=== PATIENT | female | born 1960 | race Two or more races ===

== ENCOUNTER 2020-11-12 11:34 | Emergency (ER) | payer OTHER ==
[~2020-11-12] VITALS: Ht 157.5 cm; Wt 99.8 kg
[2020-11-12] MEDS ORDERED: NORVASC2.5 MG (12:12)
[2020-11-12] MEDS ORDERED: TOPROL XL50 M1 (12:12)
[2020-11-12] MEDS ORDERED: AROMASIN25 MG (12:13)
[2020-11-12] MEDS ORDERED: VOLTAREN100 GM (12:14)
[2020-11-12] MEDS ORDERED: ZYPREXA10 MG (12:14)
[2020-11-12] MEDS ORDERED: LOSARTAN-HCTZ1 EAC2 (12:14)
[2020-11-12] MEDS ORDERED: KETO10TA2 PO (15:32)
[2020-11-12] MEDS ORDERED: AMOX1TAB5 PO (15:32)
== END 2020-11-12 15:49 | disposition home or self-care (01) ==
LOC: ER 11:34
DX: B34.9 Viral infection, unspecified (principal); Z03.818 Encounter for observation for suspected exposure to other biological agents ruled out

== ENCOUNTER 2020-12-25 11:00 | Emergency (ER) | payer OTHER ==
[~2020-12-25] VITALS: Ht 157.5 cm; Wt 109.3 kg
[~2020-12-25 11:00] MED LIST: AMOX1TAB5 PO; AROMASIN25 MG; KETO10TA2 PO; LOSARTAN-HCTZ1 EAC2; NORVASC2.5 MG; TOPROL XL50 M1; VOLTAREN100 GM; ZYPREXA10 MG
[2020-12-25] MEDS ORDERED: LIPITOR20 MG (11:19)
[2020-12-25] MEDS ORDERED: ZOLOFT100 MG (11:21)
[2020-12-25] MEDS ORDERED: ULTRAM50 MG PO (13:37)
[2020-12-25] MEDS ORDERED: SKELAXIN800 MG PO (13:37)
[2020-12-25] MEDS ORDERED: KETO10TA2 PO (13:37)
== END 2020-12-25 14:07 | disposition home or self-care (01) ==
LOC: ER 11:00
DX: M62.830 Muscle spasm of back (principal); M54.31 Sciatica, right side

== ENCOUNTER 2021-01-08 09:57 | Emergency (ER) | payer OTHER ==
[~2021-01-08] VITALS: Ht 157.5 cm; Wt 109.3 kg
[~2021-01-08 09:57] MED LIST changes: +LIPITOR20 MG; +SKELAXIN800 MG PO; +ULTRAM50 MG PO; +ZOLOFT100 MG
[2021-01-08] MEDS ORDERED: KETO10TA2 PO (16:59)
[2021-01-08] MEDS ORDERED: ORPHENADRINE C100 MG PO (16:59)
== END 2021-01-08 18:25 ==
LOC: ER 09:57
DX: N39.0 Urinary tract infection, site not specified (principal); B96.29 Other Escherichia coli [E. coli] as the cause of diseases classified elsewhere; B96.4 Proteus (mirabilis) (morganii) as the cause of diseases classified elsewhere; B34.9 Viral infection, unspecified; R50.9 Fever, unspecified; Z03.818 Encounter for observation for suspected exposure to other biological agents ruled out; R53.81 Other malaise; R19.7 Diarrhea, unspecified

== ENCOUNTER 2021-03-02 10:12 | Emergency (ER) | payer OTHER ==
[~2021-03-02] VITALS: Ht 162.6 cm; Wt 108.9 kg
[~2021-03-02 10:12] MED LIST changes: +ORPHENADRINE C100 MG PO
== END 2021-03-02 16:01 | disposition home or self-care (01) ==
LOC: ER 10:12
DX: R53.81 Other malaise (principal); Z03.818 Encounter for observation for suspected exposure to other biological agents ruled out

== ENCOUNTER 2021-03-16 10:10 | Emergency (ER) | payer OTHER ==
[~2021-03-16] VITALS: Ht 157.5 cm; Wt 108.9 kg
== END 2021-03-16 15:30 | disposition home or self-care (01) ==
LOC: ER 10:10
DX: J45.998 Other asthma (principal)

== ENCOUNTER 2021-05-12 09:39 | Emergency (ER) | payer OTHER ==
[~2021-05-12] VITALS: Ht 157.5 cm; Wt 102.1 kg
== END 2021-05-12 15:29 | disposition home or self-care (01) ==
LOC: ER 09:39
DX: R00.2 Palpitations (principal); R53.81 Other malaise; Z03.818 Encounter for observation for suspected exposure to other biological agents ruled out

== ENCOUNTER 2021-05-22 08:25 | Emergency (ER) | payer OTHER ==
[~2021-05-22] VITALS: Ht 157.5 cm; Wt 97.1 kg
[2021-05-22] MEDS ORDERED: TESSALON PERLE100 M1 PO (13:10)
[2021-05-22] MEDS ORDERED: MUCINEX DM ER1 EAC1 PO (13:10)
[2021-05-22] MEDS ORDERED: ULTRAM50 MG PO (13:10)
[2021-05-22] MEDS ORDERED: CELEBREX100 MG PO (13:10)
== END 2021-05-22 13:22 | disposition home or self-care (01) ==
LOC: ER 08:25
DX: J06.9 Acute upper respiratory infection, unspecified (principal); R68.83 Chills (without fever); R05 Cough; R51.9 Headache, unspecified; R06.02 Shortness of breath; R11.0 Nausea; Z20.822 Contact with and (suspected) exposure to COVID-19

== ENCOUNTER 2021-07-03 08:53 | Emergency (ER) | payer OTHER ==
[~2021-07-03] VITALS: Ht 157.5 cm; Wt 99.8 kg
[~2021-07-03 08:53] MED LIST changes: +CELEBREX100 MG PO; +MUCINEX DM ER1 EAC1 PO; +TESSALON PERLE100 M1 PO
== END 2021-07-03 12:49 | disposition home or self-care (01) ==
LOC: ER 08:53
DX: M54.5 Low back pain (principal)

== ENCOUNTER 2021-10-11 09:57 | Emergency (ER) | payer OTHER ==
[~2021-10-11] VITALS: Ht 157.5 cm; Wt 102.1 kg
== END 2021-10-11 14:04 | disposition home or self-care (01) ==
LOC: ER 09:57
DX: B34.9 Viral infection, unspecified (principal); M54.89 Other dorsalgia; Z11.52 Encounter for screening for COVID-19

== ENCOUNTER 2022-10-24 07:25 | Emergency (ER) | payer OTHER ==
[~2022-10-24] VITALS: Ht 157.5 cm; Wt 104.3 kg
[2022-10-24] MEDS ORDERED: AMOX1TAB5 PO (10:51)
== END 2022-10-24 11:18 | disposition home or self-care (01) ==
LOC: ER 07:25
DX: H92.09 Otalgia, unspecified ear (principal); Z20.822 Contact with and (suspected) exposure to COVID-19

== ENCOUNTER 2022-12-03 15:33 | Emergency (ER) | payer OTHER ==
[~2022-12-03] VITALS: Ht 157.5 cm; Wt 106.1 kg
[2022-12-03] MEDS ORDERED: TRAMADOL HCL50 MG PO (19:08)
[2022-12-03] MEDS ORDERED: BACTRIM DS TAB1 EACH PO (19:11)
== END 2022-12-03 19:32 | disposition home or self-care (01) ==
LOC: ER 15:33
DX: M19.91 Primary osteoarthritis, unspecified site (principal); M54.59 Other low back pain; R51.9 Headache, unspecified

== ENCOUNTER → 2023-02-17 | Emergency (ER) | payer OTHER ==
[~2023-02-17] VITALS: Ht 157.5 cm; Wt 90.7 kg
[~2023-02-17] MED LIST changes: +BACTRIM DS TAB1 EACH PO; +DICLOFENAC35 MG PO; +LEVOFLOXACIN750 MG PO; +MEDROLPACK PO; +MUCINEX D ER 11 EACH PO; +TRAMADOL HCL50 MG PO; +ZYPREXA10 MG PO
== END | disposition home or self-care (01) ==
LOC: ER 10:14
DX: B34.9 Viral infection, unspecified (principal); Z20.822 Contact with and (suspected) exposure to COVID-19

== ENCOUNTER 2023-03-28 09:52 | Outpatient (CLI) | payer OTHER | END 2023-03-28 10:15 | disposition home or self-care (01) | LOC: RAD 09:52 | PROVIDERS: ATTEND Internal Medicine | DX: C50.411 Malignant neoplasm of upper-outer quadrant of right female breast (principal); Z85.3 Personal history of malignant neoplasm of breast; R51.9 Headache, unspecified; J32.1 Chronic frontal sinusitis; M41.9 Scoliosis, unspecified ==

== ENCOUNTER → 2023-04-01 | Emergency (ER) | payer OTHER ==
[~2023-04-01] VITALS: Ht 157.5 cm; Wt 103.9 kg
[~2023-04-01] MED LIST changes: +DRAMAMINE LESS25 MG PO
== END | disposition home or self-care (01) ==
LOC: ER 13:39
DX: R42 Dizziness and giddiness (principal)

== ENCOUNTER 2023-06-08 10:43 | Emergency (ER) | payer OTHER ==
[~2023-06-08] VITALS: Ht 157.5 cm; Wt 103.9 kg
[2023-06-08] MEDS ORDERED: BACTRIM DS TAB1 EACH PO (11:09)
[2023-06-08] MEDS ORDERED: MUPIROCIN15 GM TOP (11:11)
== END 2023-06-08 11:29 | disposition home or self-care (01) ==
LOC: ER 10:43
DX: L02.216 Cutaneous abscess of umbilicus (principal); E11.9 Type 2 diabetes mellitus without complications; I11.9 Hypertensive heart disease without heart failure

== ENCOUNTER 2023-06-23 12:30 | Outpatient (CLI) | payer OTHER ==
[~2023-06-23 12:30] MED LIST changes: +MUPIROCIN15 GM TOP
== END 2023-06-23 12:31 | disposition home or self-care (01) ==
LOC: LAB 12:30
PROVIDERS: ATTEND Radiology Diagnostic Radiology
DX: I11.9 Hypertensive heart disease without heart failure (principal); R10.9 Unspecified abdominal pain

== ENCOUNTER 2023-07-03 13:40 | Emergency (ER) | payer OTHER ==
[~2023-07-03] VITALS: Ht 167.6 cm; Wt 81.6 kg
== END 2023-07-03 18:24 | disposition home or self-care (01) ==
LOC: ER 13:40
DX: M79.7 Fibromyalgia (principal); I10 Essential (primary) hypertension; Z85.3 Personal history of malignant neoplasm of breast; E78.00 Pure hypercholesterolemia, unspecified; M19.90 Unspecified osteoarthritis, unspecified site
CPT/HCPCS: 96372; 99284; J1885; J2360

== ENCOUNTER 2023-08-19 11:45 | Outpatient (CLI) | payer OTHER | END 2023-08-19 11:56 | disposition home or self-care (01) | LOC: RAD 11:45 | PROVIDERS: ATTEND General Practice | DX: M25.152 Fistula, left hip (principal) ==

== ENCOUNTER 2023-10-20 14:52 | Emergency (ER) | payer OTHER ==
[~2023-10-20] VITALS: Ht 157.5 cm; Wt 101.6 kg
[2023-10-20] MEDS ORDERED: PLAVIX75 MG PO (15:16)
[2023-10-20] MEDS ORDERED: PEPCID AC10 MG (15:18)
[2023-10-20 16:14] LABS: HEMATOCRIT 38.6 % (36.0-45.00); HEMOGLOBIN 13.2 g/dL (12.0-15.00); MEAN CORPUSCULAR HEMOGLOBIN 32.6 pg (27.00-32.0); MEAN CORPUSCULAR HGB CONC 34.3 g/dl (32.0-36.0); PLATELET COUNT 262 K/uL (150-450); RED BLOOD COUNT 4.06 M/uL (4.00-6.00)
[2023-10-20 16:31] LABS: PH,URINE 5.5 (5.0-8.0); URINE APPEARANCE Clear; URINE BILIRRUBIN Negative (NEGATIVE); URINE BLOOD Negative; URINE COLOR Dark Yellow; URINE GLUCOSE Negative (NEGATIVE); URINE LEUKOCYTE Trace; URINE NITRATE Negative; URINE PROTEIN Negative (NEGATIVE); URINE UROBILINOGEN 0.2 E.U./dl
[2023-10-20 16:32] LABS: URINE BACTERIA 105.7 uL (0.0-1933); URINE EPITHELIAL CELLS 2.6 uL (0.0-38.8); URINE RBC 3.8 uL (0.0-20.8); URINE WBC 3.8 uL (0.0-23.2)
[2023-10-20 16:33] LABS: CREATININE SERUM 0.81 mg/dL (0.55-1.02); GFR 71.41; POTASSIUM 3.82 mEq/L (3.5-5.1)
[2023-10-20] MEDS ORDERED: TUSSIN DM LIQU118 ML PO (17:28)
== END 2023-10-20 17:43 | disposition home or self-care (01) ==
LOC: ER 14:53
PROVIDERS: Nurse Practitioner Family
DX: J06.9 Acute upper respiratory infection, unspecified (principal); Z85.3 Personal history of malignant neoplasm of breast; I10 Essential (primary) hypertension; M19.90 Unspecified osteoarthritis, unspecified site; K29.70 Gastritis, unspecified, without bleeding; Z90.11 Acquired absence of right breast and nipple; R30.0 Dysuria; Z20.822 Contact with and (suspected) exposure to COVID-19
CPT/HCPCS: 36415; 96372; 99284; J1100

== ENCOUNTER 2023-12-02 12:44 | Emergency (ER) | payer OTHER ==
[~2023-12-02] VITALS: Ht 157.5 cm; Wt 101.6 kg
[~2023-12-02 12:44] MED LIST changes: +PEPCID AC10 MG; +PLAVIX75 MG PO; +TUSSIN DM LIQU118 ML PO
[2023-12-02] MEDS ORDERED: GUAIFENESIN/DEXTROMETHORPHAN 100 MG/5 ML ML PO ONE (14:45)
[2023-12-02] MEDS ORDERED: CETIRIZINE HCL 5 MG/5 ML ML PO ONE (14:45)
[2023-12-02] MEDS ORDERED: KETOROLAC TROMETHAMINE 30 MG VIAL IM ONE (15:00)
[2023-12-02 15:18] LABS: URINE APPEARANCE Cloudy; URINE BILIRRUBIN Negative (NEGATIVE); URINE BLOOD Negative; URINE COLOR Yellow; URINE GLUCOSE Negative (NEGATIVE); URINE LEUKOCYTE Trace; URINE NITRATE Negative; URINE PROTEIN Negative (NEGATIVE)
[2023-12-02 15:23] LABS: URINE EPITHELIAL CELLS 10.8 uL (0.0-38.8); URINE RBC 3.4 uL (0.0-20.8); URINE WBC 17.1 uL (0.0-23.2)
[2023-12-02 15:26] LABS: HEMATOCRIT 38.1 % (36.0-45.00); HEMOGLOBIN 12.9 g/dL (12.0-15.00); MEAN CELL VOLUME 96.5 fL (80.00-100.00); MEAN CORPUSCULAR HEMOGLOBIN 32.7 pg (27.00-32.0); MEAN CORPUSCULAR HGB CONC 33.9 g/dl (32.0-36.0); PLATELET COUNT 279 K/uL (150-450); RED BLOOD COUNT 3.95 M/uL (4.00-6.00); RED CELL DISTRIBUTION WIDTH 13.7 % (11.5-14.5)
[2023-12-02] MEDS ORDERED: ZITHROMAX500 MG PO (16:53)
[2023-12-02] MEDS ORDERED: TUSSIN DM SYRU118 ML PO (16:57)
== END 2023-12-02 17:13 | disposition home or self-care (01) ==
LOC: ER 12:44
PROVIDERS: Nurse Practitioner Family
DX: U07.1 COVID-19 (principal); I10 Essential (primary) hypertension; Z85.3 Personal history of malignant neoplasm of breast
CPT/HCPCS: 36415; 96372; 99283; J1885

== ENCOUNTER 2024-01-23 12:43 | Emergency (ER) | payer OTHER ==
[~2024-01-23] VITALS: Ht 157.5 cm; Wt 101.6 kg
[~2024-01-23 12:43] MED LIST changes: +TUSSIN DM SYRU118 ML PO; +ZITHROMAX500 MG PO
[2024-01-23] MEDS ORDERED: AZITHROMYCIN 500 MG TABLET PO ONE (13:45)
[2024-01-23] MEDS ORDERED: TRIAMCINOLONE ACETONIDE 40 MG/ML VIAL IM ONE (13:45)
[2024-01-23] MEDS ORDERED: KETOROLAC TROMETHAMINE 60 MG VIAL IM ONE (13:45)
[2024-01-23] MEDS ORDERED: DICLOFENAC SODI75 MG PO (13:49)
[2024-01-23] MEDS ORDERED: ZITHROMAX500 MG PO (13:49)
== END 2024-01-23 14:11 | disposition home or self-care (01) ==
LOC: ER 12:43
DX: M54.31 Sciatica, right side (principal)
CPT/HCPCS: 96372; 99282; J1885; J3301

== ENCOUNTER 2024-04-13 13:24 | Outpatient (CLI) | payer OTHER ==
[~2024-04-13 13:24] MED LIST changes: +AROMASIN25 MG PO; +DICLOFENAC SODI75 MG PO
== END 2024-04-13 13:34 | disposition home or self-care (01) ==
LOC: MRI 13:24
PROVIDERS: ATTEND General Practice
DX: R51.9 Headache, unspecified (principal); R42 Dizziness and giddiness; I11.9 Hypertensive heart disease without heart failure; I67.9 Cerebrovascular disease, unspecified; Z85.3 Personal history of malignant neoplasm of breast
CPT/HCPCS: 70551

== ENCOUNTER 2024-06-04 16:06 | Emergency (ER) | payer OTHER ==
[~2024-06-04] VITALS: Ht 157.5 cm; Wt 99.3 kg
[2024-06-04] MEDS ORDERED: KETOROLAC TROMETHAMINE 60 MG VIAL IM ONE ×2 (17:15→17:18)
[2024-06-04 17:46] LABS: HEMATOCRIT 37.8 % (36.0-45.00); HEMOGLOBIN 13.1 g/dL (12.0-15.00); MEAN CELL VOLUME 94.3 fL (80.00-100.00); MEAN CORPUSCULAR HEMOGLOBIN 32.7 pg (27.00-32.0); MEAN CORPUSCULAR HGB CONC 34.7 g/dl (32.0-36.0); PLATELET COUNT 216 K/uL (150-450); RED BLOOD COUNT 4.01 M/uL (4.00-6.00); RED CELL DISTRIBUTION WIDTH 14.2 % (11.5-14.5)
[2024-06-04 18:11] LABS: CALCIUM 9.6 mg/dL (8.5-10.1); CREATININE SERUM 1.07 mg/dL (0.55-1.02); GFR 51.63; POTASSIUM 3.15 mEq/L (3.5-5.1)
== END 2024-06-04 18:47 | disposition home or self-care (01) ==
LOC: ER 16:07
PROVIDERS: General Practice
DX: R53.81 Other malaise (principal); M19.90 Unspecified osteoarthritis, unspecified site; R07.9 Chest pain, unspecified; I10 Essential (primary) hypertension
CPT/HCPCS: 36415; 96372; 99282; J1885

== ENCOUNTER 2024-06-27 11:49 | Emergency (ER) | payer OTHER ==
[~2024-06-27] VITALS: Ht 157.5 cm; Wt 98.9 kg
[2024-06-27] MEDS ORDERED: SULINDAC150 MG (12:03)
[2024-06-27 13:01] LABS: HEMATOCRIT 39.8 % (36.0-45.00); HEMOGLOBIN 13.8 g/dL (12.0-15.00); MEAN CELL VOLUME 96.8 fL (80.00-100.00); MEAN CORPUSCULAR HEMOGLOBIN 33.5 pg (27.00-32.0); MEAN CORPUSCULAR HGB CONC 34.6 g/dl (32.0-36.0); PLATELET COUNT 220 K/uL (150-450); RED BLOOD COUNT 4.11 M/uL (4.00-6.00); RED CELL DISTRIBUTION WIDTH 13.8 % (11.5-14.5)
[2024-06-27 13:26] LABS: PH,URINE 6.5 (5.0-8.0); URINE APPEARANCE Clear; URINE BILIRRUBIN Negative (NEGATIVE); URINE BLOOD Negative; URINE COLOR Yellow; URINE GLUCOSE Negative (NEGATIVE); URINE KETONE Trace (NEGATIVE); URINE LEUKOCYTE Trace; URINE NITRATE Negative; URINE PROTEIN Negative (NEGATIVE); URINE UROBILINOGEN 0.2 E.U./dl
[2024-06-27 13:30] LABS: URINE BACTERIA 26.4 uL (0.0-1933); URINE EPITHELIAL CELLS 6.4 uL (0.0-38.8); URINE RBC 2.9 uL (0.0-20.8); URINE WBC 8.6 uL (0.0-23.2)
[2024-06-27 13:38] LABS: URINE CAST 0.15 uL (0.0-1.40)
[2024-06-27 13:43] LABS: CALCIUM 9.6 mg/dL (8.5-10.1); CREATININE SERUM 0.84 mg/dL (0.55-1.02); GFR 68.26; POTASSIUM 3.52 mEq/L (3.5-5.1)
== END 2024-06-27 16:05 | disposition home or self-care (01) ==
LOC: ER 11:50
PROVIDERS: General Practice
DX: M54.50 Low back pain, unspecified (principal); M19.90 Unspecified osteoarthritis, unspecified site; M79.7 Fibromyalgia; I10 Essential (primary) hypertension; Z85.3 Personal history of malignant neoplasm of breast; N20.0 Calculus of kidney; K57.30 Diverticulosis of large intestine without perforation or abscess without bleeding

== ENCOUNTER 2025-01-28 09:21 | Emergency (ER) | payer OTHER ==
[~2025-01-28] VITALS: Ht 157.5 cm; Wt 81.6 kg
[~2025-01-28 09:21] MED LIST changes: +SULINDAC150 MG
[2025-01-28 09:46] VITALS: BP 115/80; O2SAT 95
[2025-01-28] MEDS ORDERED: ACETAMINOPHEN 500 MG GEL..CAP PO ONE ×2 (11:45→11:48)
[2025-01-28 12:03] LABS: HEMATOCRIT 42.2 % (36.0-45.00); HEMOGLOBIN 14.6 g/dL (12.0-15.00); MEAN CELL VOLUME 94.8 fL (80.00-100.00); MEAN CORPUSCULAR HEMOGLOBIN 32.9 pg (27.00-32.0); MEAN CORPUSCULAR HGB CONC 34.7 g/dl (32.0-36.0); PLATELET COUNT 259 K/uL (150-450); RED BLOOD COUNT 4.45 M/uL (4.00-6.00); RED CELL DISTRIBUTION WIDTH 13.5 % (11.5-14.5)
[2025-01-28 12:12] LABS: PH,URINE 5.5 (5.0-8.0); URINE APPEARANCE Cloudy; URINE BACTERIA 46.4 uL (0.0-1933); URINE BILIRRUBIN Negative (NEGATIVE); URINE BLOOD Negative; URINE COLOR Yellow; URINE EPITHELIAL CELLS 6.1 uL (0.0-38.8); URINE GLUCOSE Negative (NEGATIVE); URINE KETONE Trace (NEGATIVE); URINE LEUKOCYTE Small; URINE NITRATE Negative; URINE PROTEIN Negative (NEGATIVE); URINE RBC 5.1 uL (0.0-20.8); URINE WBC 28.4 uL (0.0-23.2)
[2025-01-28 12:34] LABS: URINE CAST 0.44 uL (0.0-1.40)
[2025-01-28 12:41] LABS: COVID-19 AG NEGATIVE (NEGATIVE); INFLUENZA A AG NEGATIVE (NEGATIVE)
[2025-01-28 14:22] LABS: ALBUMIN 4.1 gm/dL (3.4-5.0); BILIRUBIN TOTAL 0.29 mg/dL (0.3-1.2); CALCIUM 9.8 mg/dL (8.5-10.1); CREATININE SERUM 0.93 mg/dL (0.55-1.02); GFR 60.5; GLOBULINA 3.2 G/DL (2.4-3.5); POTASSIUM 3.71 mEq/L (3.5-5.1); TOTAL PROTEIN 7.3 gm/dL (6.4-8.2)
[2025-01-28] MEDS ORDERED: MACROBID 100 M100 MG PO (15:07)
[2025-01-28] MEDS ORDERED: ACETAMINOPHEN500 M1 PO (15:07)
[2025-01-28] MEDS ORDERED: GILTUSS COUGH-118 M1 PO (15:07)
[2025-01-28] MEDS ORDERED: DICLOFENAC SODI75 MG PO (15:13)
== END 2025-01-28 16:19 | disposition home or self-care (01) ==
LOC: ER 09:22
PROVIDERS: Preventive Medicine Public Health & General Preventive Medicine
DX: B34.9 Viral infection, unspecified (principal); N39.0 Urinary tract infection, site not specified; Z20.822 Contact with and (suspected) exposure to COVID-19; Z85.3 Personal history of malignant neoplasm of breast

== ENCOUNTER 2025-02-15 08:44 | Outpatient (CLI) | payer OTHER ==
[~2025-02-15 08:44] MED LIST changes: +ACETAMINOPHEN500 M1 PO; +GILTUSS COUGH-118 M1 PO; +MACROBID 100 M100 MG PO
== END 2025-02-15 08:50 | disposition home or self-care (01) ==
LOC: RAD 08:44
PROVIDERS: ATTEND Internal Medicine
DX: I11.9 Hypertensive heart disease without heart failure (principal); M54.9 Dorsalgia, unspecified; M54.50 Low back pain, unspecified; J01.90 Acute sinusitis, unspecified

== ENCOUNTER → 2025-03-03 | Emergency (ER) | payer OTHER ==
[~2025-03-03] VITALS: Ht 157.5 cm; Wt 98.9 kg
[~2025-03-03] MED LIST changes: +ACETAMINOPHEN 500 MG GEL..CAP PO ONE; +GILTUSS HONEY118 ML PO; +KETOROLAC TROMETHAMINE 15 MG VIAL IM STA
[2025-03-03 16:25] LABS: BASO % 0.3 % (0.1-1.2); EOS # 0.18 (0.04-0.54); EOS % 1.7 % (0.7-7.0); HEMATOCRIT 37.7 % (34.1-44.9); HEMOGLOBIN 13.1 g/dL (11.2-15.7); LYMPH # 3.22 (1.18-3.74); LYMPH % 29.7 % (19.3-53.1); MEAN CORPUSCULAR HEMOGLOBIN 32.5 pg (25.6-32.2); MONO # 0.67 (0.24-0.82); MONO % 6.2 % (4.7-12.5); NEUT % 61.7 % (34.0-71.1); PLATELET COUNT 256 K/uL (163-369); RED BLOOD COUNT 4.03 M/uL (3.93-5.22); RED CELL DISTRIBUTION WIDTH 13.1 % (11.6-14.4)
[2025-03-03 16:40] LABS: ALBUMIN 3.7 gm/dL (3.4-5.0); BILIRUBIN TOTAL 0.4 mg/dL (0.3-1.2); CREATININE SERUM 0.79 mg/dL (0.55-1.02); GFR 73.04; GLOBULINA 3.2 G/DL (2.4-3.5); POTASSIUM 3.91 mEq/L (3.5-5.1); TOTAL PROTEIN 6.9 gm/dL (6.4-8.2)
[2025-03-03 16:45] LABS: URINE APPEARANCE Clear; URINE BILIRRUBIN Negative (NEGATIVE); URINE BLOOD Negative; URINE COLOR Dark Yellow; URINE GLUCOSE Negative (NEGATIVE); URINE KETONE Trace (NEGATIVE); URINE LEUKOCYTE Small; URINE NITRATE Negative; URINE PROTEIN Negative (NEGATIVE)
[2025-03-03 16:47] LABS: URINE BACTERIA 74.6 uL (0.0-1933); URINE EPITHELIAL CELLS 25.9 uL (0.0-38.8); URINE RBC 3.2 uL (0.0-20.8); URINE WBC 30.3 uL (0.0-23.2)
[2025-03-03 16:57] LABS: COVID-19 AG NEGATIVE (NEGATIVE); INFLUENZA A AG NEGATIVE (NEGATIVE)
[2025-03-03 16:58] LABS: URINE CAST 0.14 uL (0.0-1.40); URINE MUCUS HEAVY
== END | disposition home or self-care (01) ==
LOC: ER 12:30
PROVIDERS: General Practice
DX: B34.9 Viral infection, unspecified (principal); Z20.822 Contact with and (suspected) exposure to COVID-19; I10 Essential (primary) hypertension; Z88.5 Allergy status to narcotic agent
CPT/HCPCS: 36415; 71046; 96372; 99283; J1885